=== PATIENT | male | born 1965 | race African-American/Black ===

== ENCOUNTER 2017-12-18 15:43 | Emergency (ER) | payer OTHER ==
[~2017-12-18] VITALS: Ht 182.9 cm; Wt 90.0 kg
[2017-12-18] MEDS ORDERED: METO25 PO (16:41)
[2017-12-18] MEDS ORDERED: SPIR25 PO (16:41)
[2017-12-18] MEDS ORDERED: LIB10 PO (16:41)
[2017-12-18] MEDS ORDERED: FOLI0.4T4 PO (16:41)
[2017-12-18] MEDS ORDERED: LOSA25TA21 PO (16:41)
[2017-12-18] MEDS ORDERED: DIGO-44 PO (16:41)
[2017-12-18] MEDS ORDERED: ATOR40TA28 PO (16:41)
[2017-12-18] MEDS ORDERED: PHENYLEPHRINE HCL 1% 15 ML NASAL SPRAY NASAL ONE (16:45)
[2017-12-18 17:06] LABS: BASOPHILS % (AUTO) 1.1 % (0.0-2.0); EOSINOPHILS % (AUTO) 2.1 % (1.0-6.0); HEMATOCRIT 31.6 % (41-53); HEMOGLOBIN 10.8 g/dL (13.5-17.5); LYMPHOCYTES # (AUTO) 2.3 K/uL (1.0-4.8); LYMPHOCYTES % (AUTO) 45.8 % (22.0-44.0); MEAN CORPUSCULAR HEMOGLOBIN 30.8 pg (26.0-34.0); MEAN CORPUSCULAR HGB CONC 34.1 G/dL (31.0-37.0); MEAN CORPUSCULAR VOLUME 90 fL (80-100); MONOCYTES # (AUTO) 0.6 K/uL (0.1-1.0); MONOCYTES % (AUTO) 11.7 % (2.0-9.0); NEUTROPHILS % (AUTO) 39.3 % (40.0-70.0); PLATELET COUNT (AUTO) 124 K/uL (150-450); RED BLOOD CELL COUNT(AUTO) 3.49 MIL/uL (4.50-5.90); RED CELL DISTRIBUTION WIDTH 14.7 % (11.5-14.5)
[2017-12-18 17:13] LABS: ANION GAP 12 mmol/L (8-16); CALCIUM, TOTAL 7.8 mg/dL (8.8-10.5); CARBON DIOXIDE 25 mmol/L (22-29); CHLORIDE 103 mmol/L (98-107); CREATININE 0.77 mg/dL (0.60-1.30); GLOMERULAR FILTR. RATE CALC > 60 mL/min (>60); GLUCOSE,RANDOM 113 mg/dL (70-110); POTASSIUM 3.6 mmol/L (3.5-5.1); SODIUM SERUM 140 mmol/L (136-145); UREA NITROGEN, BLOOD 11 mg/dL (7-18)
[2017-12-18 17:16] LABS: INR 1.3 (0.9-1.1); PROTHROMBIN TIME 13.8 SEC (9.4-11.6)
[2017-12-18 17:21] LABS: ALANINE AMINOTRANSFERASE 42 U/L (12-78); ALBUMIN 3.2 g/dL (3.4-5.0); ALKALINE PHOSPHATASE 156 U/L (46-116); ASPARTATE AMINOTRANSFERASE 90 U/L (15-37); DIGOXIN 0.25 ng/mL (0.90-2.00); TOTAL PROTEIN, SERUM 7.5 g/dL (6.4-8.2)
[2017-12-18] MEDS ORDERED: MAGNESIUM SULFATE 2 GM, MVI, ADULT NO.1 WITH VIT K 10 ML, THIAMINE HCL 100 MG, FOLIC AC... IV ONE ×5 (18:30)
[2017-12-18 21:15] VITALS: BP 122/80
== END 2017-12-18 21:38 | disposition home or self-care (01) ==
LOC: EMS 15:44
DX: R04.0 Epistaxis (principal); I48.91 Unspecified atrial fibrillation; K70.9 Alcoholic liver disease, unspecified; I10 Essential (primary) hypertension; E78.00 Pure hypercholesterolemia, unspecified; Y90.8 Blood alcohol level of 240 mg/100 ml or more
CPT/HCPCS: 36415; 80053; 80162; 85025; 85610; 93005; 96365; 96366; 99285; G0480; J3411; J3475; J3490 ×2; J7030